=== PATIENT | female | born 1955 | race Asian ===

== ENCOUNTER 2019-07-06 09:35 | Outpatient (CLI) | payer OTHER, SELFPAY ==
[2019-07-06 10:15] LABS: Basophils Absolute Auto 0.1 K/mm3 (0.0-0.1); Basophils Percent Auto 0.8 % (0.2-1.2); Eosinophils Absolute Auto 0.9 K/mm3 (0-0.3); Eosinophils Percent Auto 10.2 % (0-4.4); Hematocrit 39.2 % (37.0-47.0); Hemoglobin 13.1 g/dL (12.0-15.0); Immature Granulocyte Absolute 0.02 K/mm3 (0.00-0.031); Immature Granulocyte Percent A 0.2 % (0-0.5); Lymphocytes Absolute Auto 2.23 K/mm3 (0.9-3.2); Lymphocytes Percent Auto 26.4 % (18.3-44.2); Mean Corpuscular HGB Conc 33.4 g/dl (32-36); Mean Corpuscular Hemoglobin 26.9 pg (26-34); Mean Corpuscular Volume 80.5 fl (80-100); Mean Platelet Volume 8.9 fl (7.4-10.4); Monocytes Absolute Auto 1.1 K/mm3 (0.1-0.6); Monocytes Percent Auto 12.9 % (2.6-8.5); Neutrophils Absolute Auto 4.2 K/mm3 (1.3-6.7); Neutrophils Percent Auto 49.5 % (45.5-73.1); Platelet Count Result 318 k/mm3 (150-375); Red Blood Count 4.87 M/mm3 (4.2-5.4); Red Cell Distribution Width 13.6 % (11.5-14.5); White Blood Count 8.4 K/mm3 (4.5-10.0)
[2019-07-06 10:31] LABS: Albumin Level 4.4 g/dL (3.5-5.1); Blood Urea Nitrogen 26 mg/dL (7-17); Calcium 8.7 mg/dL (8.4-10.2); Carbon Dioxide 28 mmol/L (22-30); Chloride 101 mmol/L (98-107); Estimated Glomerular Filt Rate 56; Glucose 111 mg/dL (65-105); Phosphorus 3.3 mg/dL (2.5-4.5); Potassium 3.6 mmol/L (3.4-5.0); Sodium 142 mmol/L (137-145); Uric Acid 4.3 mg/dL (2.5-7.5)
[2019-07-06 12:08] LABS: Creatinine Urine 58.9 mg/dL
[2019-07-06 12:09] LABS: MALB Creatinine Ratio 139.4 mg/g (0-30); Microalbumin Urine Random 82.1 mg/L (0-16.7)
== END 2019-07-06 09:36 | disposition home or self-care (01) ==
DX: I12.9 Hypertensive chronic kidney disease with stage 1 through stage 4 chronic kidney disease, or unspecified chronic kidney disease (principal); N18.3 Chronic kidney disease, stage 3 (moderate)
CPT/HCPCS: 36415; 80069; 82043; 84550; 85025

== ENCOUNTER 2019-10-05 06:34 | Outpatient (CLI) | payer OTHER, SELFPAY ==
--- NOTE | ~2019-10-05 | US_ITS ---
US right upper quadrant INDICATION: Chronic active hepatitis B PROCEDURE: Realtime right upper abdominal ultrasound. COMPARISON: Ultrasound dated 03/15/2019 FINDINGS: The pancreas is normal without focal mass or pancreatic ductal dilation. Liver echotexture is normal without focal mass or intrahepatic biliary dilatation. There is normal directional flow i n the portal vein. The gallbladder is normal without stones, gallbladder wall thickening or pericholecystic fluid. Comm on bile duct measures 3 mm. No sonographic Marquez's sign. IMPRESSION: 1: Normal limited abdominal ultrasound. Reviewed, dictated and finalized at location A.
[2019-10-05 07:23] LABS: Hematocrit 40.3 % (37.0-47.0); Hemoglobin 13.3 g/dL (12.0-15.0); Mean Corpuscular Hemoglobin 27.1 pg (26-34); Mean Corpuscular Volume 82.2 fl (80-100); Mean Platelet Volume 9.2 fl (7.4-10.4); Platelet Count Result 315 k/mm3 (150-375); Red Cell Distribution Width 13.8 % (11.5-14.5); White Blood Count 9.7 K/mm3 (4.5-10.0)
[2019-10-05 07:41] LABS: Alanine Aminotransferase 29 U/L (4-35); Albumin Level 4.3 g/dL (3.5-5.1); Alkaline Phosphatase 80 U/L (38-126); Aspartate Amino Transferase 52 U/L (14-36); Bilirubin,Total 0.8 mg/dL (0.2-1.3); Blood Urea Nitrogen 21 mg/dL (7-17); Calcium 8.6 mg/dL (8.4-10.2); Carbon Dioxide 31 mmol/L (22-30); Chloride 104 mmol/L (98-107); Estimated Glomerular Filt Rate 50; Glucose 106 mg/dL (65-105); Potassium 3.5 mmol/L (3.4-5.0); Sodium 139 mmol/L (137-145)
== END 2019-10-05 06:35 | disposition home or self-care (01) ==
DX: B18.1 Chronic viral hepatitis B without delta-agent (principal)
CPT/HCPCS: 36415; 76705; 80053; 85027

== ENCOUNTER 2019-11-15 07:37 | Outpatient (CLI) | payer OTHER, SELFPAY ==
--- NOTE | ~2019-11-15 | MM_ITS ---
EXAMINATION: MM screening declan BI w andrés HISTORY: Screening mammogram TECHNIQUE: Craniocaudal and mediolateral oblique 3-D tomosynthesis images were obtained and synthetic 2-D images were generated. CAD analysis was submitted and interpreted. COMPARISON: No prior mammogram is available for comparison at this institution. BREAST PARENCHYMAL COMPOSITION: There are scattered areas of fibroglandular density. FINDINGS: There is no evidence of suspicious mass, calcification, or architectural distortion to sugg est malignancy in either breast. IMPRESSION: 1. No mammographic evidence of malignancy. 2. Recommend routine screening mammography in one year. BI-RADS Category 1: Negative Reviewed, dictated and finalized at location A.
== END 2019-11-15 07:38 | disposition home or self-care (01) ==
DX: Z12.31 Encounter for screening mammogram for malignant neoplasm of breast (principal)
CPT/HCPCS: 77063; 77067

== ENCOUNTER 2019-12-07 06:37 | Outpatient (CLI) | payer OTHER, SELFPAY ==
[2019-12-07 11:13] LABS: Hepatitis B Surface Antigen Positive (Negative)
[2019-12-10 05:00] LABS: Hepatitis Be Antibody Reactive; Hepatitis Be Antigen Nonreactive
== END 2019-12-07 06:38 | disposition home or self-care (01) ==
PROVIDERS: Visit Provider Internal Medicine Gastroenterology
DX: B19.10 Unspecified viral hepatitis B without hepatic coma (principal)
CPT/HCPCS: 36415; 86707; 87340; 87350; 87517

== ENCOUNTER 2020-03-06 06:43 | Outpatient (CLI) | payer OTHER, SELFPAY ==
[2020-03-06 07:40] LABS: Basophils Absolute Auto 0.1 K/mm3 (0.0-0.1); Basophils Percent Auto 0.7 % (0.2-1.2); Eosinophils Absolute Auto 1.3 K/mm3 (0-0.3); Eosinophils Percent Auto 13.7 % (0-4.4); Hematocrit 39.5 % (37.0-47.0); Hemoglobin 13.1 g/dL (12.0-15.0); Immature Granulocyte Absolute 0.02 K/mm3 (0.00-0.031); Immature Granulocyte Percent A 0.2 % (0-0.5); Lymphocytes Percent Auto 29.1 % (18.3-44.2); Mean Corpuscular HGB Conc 33.2 g/dl (32-36); Mean Corpuscular Hemoglobin 27.2 pg (26-34); Mean Platelet Volume 8.9 fl (7.4-10.4); Monocytes Absolute Auto 1.2 K/mm3 (0.1-0.6); Monocytes Percent Auto 12.1 % (2.6-8.5); Neutrophils Absolute Auto 4.3 K/mm3 (1.3-6.7); Neutrophils Percent Auto 44.2 % (45.5-73.1); Platelet Count Result 317 k/mm3 (150-375); Red Blood Count 4.82 M/mm3 (4.2-5.4); White Blood Count 9.6 K/mm3 (4.5-10.0)
[2020-03-06 07:53] LABS: Alanine Aminotransferase 32 U/L (4-35); Albumin Level 4.3 g/dL (3.5-5.1); Alkaline Phosphatase 77 U/L (38-126); Anion Gap 5 mmol/L (8-16); Aspartate Amino Transferase 59 U/L (14-36); Bilirubin,Total 0.7 mg/dL (0.2-1.3); Blood Urea Nitrogen 26 mg/dL (7-17); Calcium 8.5 mg/dL (8.4-10.2); Carbon Dioxide 33 mmol/L (22-30); Chloride 103 mmol/L (98-107); Cholesterol 184 mg/dL (0-200); Estimated Glomerular Filt Rate 50; Glucose 101 mg/dL (65-105); HDL Direct 37 mg/dL; Potassium 3.4 mmol/L (3.4-5.0); Sodium 141 mmol/L (137-145); Triglycerides 189 mg/dL (<150); Uric Acid 3.7 mg/dL (2.5-7.5)
[2020-03-06 07:54] LABS: Hemoglobin A1C 5.3 % (<5.7)
[2020-03-06 08:03] LABS: LDL Cholesterol Direct 109 mg/dL
[2020-03-06 08:11] LABS: Add Urine Microscopic? YES; Appearance Urine Cloudy (Clear); Bacteria Urine Trace /hpf; Bilirubin Urine Negative (Negative); Blood Urine Negative (Negative); Color Urine Yellow (Yellow); Glucose Urine UA Negative (Negative); Ketones Urine Negative (Negative); Leukocyte Esterase Ur Trace LEU/UL (Negative); Mucus Urine Rare /lpf; Nitrate Urine Negative (Negative); Protein Urine 1+ mg/dL (Negative); RBC Urine 0-2 /hpf (0-2); Specific Grav Ur 1.013 (1.001-1.035); Squamous Epithelial Cell Urine Rare /hpf (Few); Urobilinogen Urine Negative mg/dL (<2.0); WBC Urine 0-3 /hpf
[2020-03-06 08:17] LABS: Creatinine Urine 47.2 mg/dL; Total Protein Urine Random 47 mg/dL
[2020-03-06 08:22] LABS: MALB Creatinine Ratio 130.9 mg/g (0-30); Microalbumin Urine Random 61.8 mg/L (0-16.7)
[2020-03-11 20:23] LABS: Hepatitis B DNA PCR <1.00 Log IU/mL; Hepatitis B DNA PCR <10 IU/mL
== END 2020-03-06 06:44 | disposition home or self-care (01) ==
PROVIDERS: Referring Provider Internal Medicine Gastroenterology; Visit Provider Internal Medicine
DX: B19.10 Unspecified viral hepatitis B without hepatic coma (principal); I12.9 Hypertensive chronic kidney disease with stage 1 through stage 4 chronic kidney disease, or unspecified chronic kidney disease; N18.30 Chronic kidney disease, stage 3 unspecified
CPT/HCPCS: 36415; 80053; 80061; 81001; 82043; 82248; 82570; 83036; 84100; 84156; 84443; 84550; 85025; 87517

== ENCOUNTER 2020-05-22 06:39 | Outpatient (CLI) | payer OTHER, SELFPAY ==
[2020-05-22 07:51] LABS: Add Urine Microscopic? YES; Appearance Urine Clear (Clear); Bilirubin Urine Negative (Negative); Blood Urine Negative (Negative); Color Urine Straw (Yellow); Glucose Urine UA 1+ mg/dL (Negative); Ketones Urine Negative (Negative); Leukocyte Esterase Ur Negative LEU/UL (NEGATIVE); Mucus Urine Few /lpf; Nitrate Urine Negative (Negative); Protein Urine 2+ mg/dL (Negative); RBC Urine 0-2 /hpf (0-2); Specific Grav Ur 1.014 (1.001-1.035); Squamous Epithelial Cell Urine Occasional /hpf (Few); Urobilinogen Urine Negative mg/dL (<2.0); WBC Urine 0-3 /hpf (0-3)
[2020-05-22 07:53] LABS: Creatinine Urine 69.4 mg/dL; Total Protein Urine Random 65 mg/dL; Ur Ttl Prot Creatinine Ratio 0.94 mg/mg (0-0.20)
[2020-05-22 07:56] LABS: Rheumatoid Factor < 8.6 IU/ML (<12)
[2020-05-22 09:52] LABS: Alanine Aminotransferase 30 U/L (4-35); Albumin Level 4.3 g/dL (3.5-5.1); Alkaline Phosphatase 86 U/L (38-126); Anion Gap 6 mmol/L (8-16); Aspartate Amino Transferase 55 U/L (14-36); Bilirubin,Total 0.5 mg/dL (0.2-1.3); Blood Urea Nitrogen 23 mg/dL (7-17); Calcium 8.6 mg/dL (8.4-10.2); Carbon Dioxide 30 mmol/L (22-30); Chloride 106 mmol/L (98-107); Estimated Glomerular Filt Rate 45; Glucose 106 mg/dL (65-105); Potassium 3.5 mmol/L (3.4-5.0); Sodium 142 mmol/L (137-145); Uric Acid 4.2 mg/dL (2.5-7.5)
[2020-05-22 10:22] LABS: Hepatitis B Core IgM Result Negative (Negative)
[2020-05-22 10:34] LABS: Hepatitis B Surface Anti Res Negative
[2020-05-22 10:35] LABS: Hepatitis B Surface Antigen Positive (Negative)
== END 2020-05-22 06:40 | disposition home or self-care (01) ==
PROVIDERS: Visit Provider Internal Medicine Nephrology
DX: I12.9 Hypertensive chronic kidney disease with stage 1 through stage 4 chronic kidney disease, or unspecified chronic kidney disease (principal); N18.30 Chronic kidney disease, stage 3 unspecified
CPT/HCPCS: 36415; 80053; 81001; 82570; 84100; 84156; 84550; 86430; 86705; 86706; 87340

== ENCOUNTER 2020-08-07 06:39 | Outpatient (CLI) | payer OTHER, SELFPAY ==
[2020-08-07 07:54] LABS: Alanine Aminotransferase 33 U/L (4-35); Albumin Level 4.2 g/dL (3.5-5.1); Alkaline Phosphatase 60 U/L (38-126); Aspartate Amino Transferase 62 U/L (14-36); Bilirubin,Total 0.5 mg/dL (0.2-1.3)
[2020-08-07 08:52] LABS: Hepatitis B Surface Antigen Positive (Negative)
[2020-08-10 20:04] LABS: Hepatitis Be Antigen Nonreactive
[2020-08-11 10:48] LABS: Hepatitis B DNA PCR <1.00 Log IU/mL; Hepatitis B DNA PCR <10 IU/mL
[2020-08-12 18:53] LABS: Alpha Fetoprotein Tumor Marker 4.2 ng/mL (<6.1)
== END 2020-08-07 06:40 | disposition home or self-care (01) ==
PROVIDERS: Visit Provider Internal Medicine Gastroenterology
DX: B19.10 Unspecified viral hepatitis B without hepatic coma (principal)
CPT/HCPCS: 36415; 80076; 82105; 87340; 87350; 87517

== ENCOUNTER 2020-10-03 06:34 | Outpatient (CLI) | payer OTHER, SELFPAY ==
[2020-10-03 07:31] LABS: Basophils Percent Auto 0.2 % (0.2-1.2); Eosinophils Absolute Auto 0.9 K/mm3 (0-0.3); Hematocrit 36.9 % (37.0-47.0); Immature Granulocyte Absolute 0.02 K/mm3 (0.00-0.031); Immature Granulocyte Percent A 0.2 % (0-0.5); Lymphocytes Absolute Auto 2.49 K/mm3 (0.9-3.2); Lymphocytes Percent Auto 29.1 % (18.3-44.2); Mean Corpuscular HGB Conc 32.5 g/dl (32-36); Mean Corpuscular Hemoglobin 26.3 pg (26-34); Mean Corpuscular Volume 80.7 fl (80-100); Mean Platelet Volume 8.6 fl (7.4-10.4); Monocytes Absolute Auto 0.9 K/mm3 (0.1-0.6); Monocytes Percent Auto 10.4 % (2.6-8.5); Neutrophils Absolute Auto 4.2 K/mm3 (1.3-6.7); Neutrophils Percent Auto 49.1 % (45.5-73.1); Platelet Count Result 367 k/mm3 (150-375); Red Blood Count 4.57 M/mm3 (4.2-5.4); Red Cell Distribution Width 13.9 % (11.5-14.5); White Blood Count 8.6 K/mm3 (4.5-10.0)
[2020-10-03 07:36] LABS: Add Urine Microscopic? YES; Appearance Urine Clear (Clear); Bilirubin Urine Negative (Negative); Blood Urine Negative (Negative); Color Urine Yellow (Yellow); Glucose Urine UA Negative (Negative); Ketones Urine Negative (Negative); Leukocyte Esterase Ur 1+ LEU/UL (Negative); Mucus Urine Rare /lpf; Nitrate Urine Negative (Negative); Protein Urine 1+ mg/dL (Negative); RBC Urine 0-2 /hpf (0-2); Specific Grav Ur 1.011 (1.001-1.035); Squamous Epithelial Cell Urine Rare /hpf (Few); Urobilinogen Urine Negative mg/dL (<2.0)
[2020-10-03 07:39] LABS: Hemoglobin A1C 5.8 % (<5.7)
[2020-10-03 07:41] LABS: Alanine Aminotransferase 31 U/L (4-35); Albumin Level 4.1 g/dL (3.5-5.1); Alkaline Phosphatase 72 U/L (38-126); Anion Gap 8 mmol/L (8-16); Aspartate Amino Transferase 78 U/L (14-36); Bilirubin,Total 0.5 mg/dL (0.2-1.3); Blood Urea Nitrogen 19 mg/dL (7-17); Calcium 8.6 mg/dL (8.4-10.2); Carbon Dioxide 30 mmol/L (22-30); Chloride 105 mmol/L (98-107); Cholesterol 182 mg/dL (0-200); Estimated Glomerular Filt Rate 45; Glucose 104 mg/dL (65-105); HDL Direct 35 mg/dL; Phosphorus 2.7 mg/dL (2.5-4.5); Potassium 3.4 mmol/L (3.4-5.0); Sodium 143 mmol/L (137-145); Triglycerides 133 mg/dL (<150); Uric Acid 3.3 mg/dL (2.5-7.5)
[2020-10-03 07:52] LABS: LDL Cholesterol Direct 90 mg/dL
[2020-10-03 07:59] LABS: Erythrocyte Sedimentation Rate 40 mm/hr (0-20)
[2020-10-03 08:03] LABS: Creatinine Urine 62.2 mg/dL; Total Protein Urine Random 82 mg/dL; Ur Ttl Prot Creatinine Ratio 1.32 mg/mg (0-0.20)
[2020-10-03 08:08] LABS: MALB Creatinine Ratio 165.3 mg/g (0-30); Microalbumin Urine Random 102.8 mg/L (0-16.7)
[2020-10-03 08:33] LABS: Iron 90 ug/dL (37-170)
[2020-10-03 08:44] LABS: Percent Iron Saturation 23 % (20-50)
[2020-10-03 08:48] LABS: Folic Acid > 20.0 ng/mL (2.76->20); Vitamin B12 > 1000.0 pg/mL (239-931)
[2020-10-05 11:51] LABS: Hepatitis B DNA PCR <1.00 Log IU/mL; Hepatitis B DNA PCR <10 IU/mL
== END 2020-10-03 06:35 | disposition home or self-care (01) ==
PROVIDERS: Referring Provider Internal Medicine Nephrology; Visit Provider Internal Medicine
DX: I12.9 Hypertensive chronic kidney disease with stage 1 through stage 4 chronic kidney disease, or unspecified chronic kidney disease (principal); N18.30 Chronic kidney disease, stage 3 unspecified; B19.10 Unspecified viral hepatitis B without hepatic coma; E03.9 Hypothyroidism, unspecified; J45.902 Unspecified asthma with status asthmaticus; J44.9 Chronic obstructive pulmonary disease, unspecified; G47.00 Insomnia, unspecified; Z13.9 Encounter for screening, unspecified
CPT/HCPCS: 36415; 80053; 80061; 80069; 81001; 82043; 82306; 82570; 82607; 82728; 82746; 83036; 83540; 83550; 84156; 84436; 84443; 84550; 85025; 85652; 87086; 87088; 87517

== ENCOUNTER 2020-10-04 09:00 | Emergency (ER) | payer OTHER, SELFPAY ==
--- NOTE | ~2020-10-04 | XR_ITS ---
EXAMINATION: XR chest 2V EXAM DATE: 10/04/2020 10:37 INDICATION: cough and congestion for 3 weeks. TECHNIQUE: Frontal and lateral projections of the chest obtained and reviewed. There is no prior jitendra dy for comparison. FINDINGS: The lungs are clear. There are no pleural effusions. The cardiomediastinal silhouette is within normal limits. There is no pneumothorax suspected. The bones and soft tissues are unremarkab le. IMPRESSION: No acute cardiopulmonary findings. Reviewed, dictated and finalized at location B.
[2020-10-04 09:05] VITALS: BP 130/84; PULSE 104; RESP 20; TEMP 36.2; O2SAT 99
--- NOTE | 2020-10-04 09:28 | PC.NURSE ---
Arrives ambulatory steady gait, c/o x3 weeks congested cough and sore throat, denies CP/SOB, 100% RA sats. States she received full covid vaccine
[2020-10-04] MEDS: IPRATROPIUM BR 0.02% INH SOLN 0.5 MG/2.5 ML VIAL 1 MG INHALATION (09:43)
[2020-10-04] MEDS: ALBUTEROL SULFATE NEB 2.5 MG/0.5 ML INH 20 MG INHALATION (09:44)
--- NOTE | 2020-10-04 09:48 | PC.NURSE ---
Respiratory at bedside to administer hour long neb, 100% sats, pt awake sitting up on cart HOB elevated
[2020-10-04 09:50] VITALS: PULSE 82; RESP 30
[2020-10-04] MEDS: methylPREDNISolone SOD SUCC 125 MG VIAL 80 MG IV PUSH (10:08)
[2020-10-04] MEDS: SODIUM CHLORIDE 0.9% IV 500 ML 999 ML IV CONT (10:08)
[2020-10-04 10:25] LABS: Basophils Percent Auto 0.3 % (0.2-1.2); Hematocrit 34.5 % (37.0-47.0); Hemoglobin 11.4 g/dL (12.0-15.0); Immature Granulocyte Absolute 0.05 K/mm3 (0.00-0.031); Immature Granulocyte Percent A 0.4 % (0-0.5); Lymphocytes Absolute Auto 2.88 K/mm3 (0.9-3.2); Lymphocytes Percent Auto 24.1 % (18.3-44.2); Mean Corpuscular Hemoglobin 26.1 pg (26-34); Mean Corpuscular Volume 78.9 fl (80-100); Mean Platelet Volume 8.8 fl (7.4-10.4); Monocytes Percent Auto 8.4 % (2.6-8.5); Neutrophils Percent Auto 58.8 % (45.5-73.1); Platelet Count Result 378 k/mm3 (150-375); Red Blood Count 4.37 M/mm3 (4.2-5.4); Red Cell Distribution Width 13.6 % (11.5-14.5); White Blood Count 11.9 K/mm3 (4.5-10.0)
[2020-10-04 10:34] LABS: Lactic Acid Reflex 1.3 mmol/L (0.7-2.1)
[2020-10-04 10:37] LABS: INR 0.9; Prothrombin Time 12.4 Seconds (11.1-14.7)
[2020-10-04 10:38] LABS: Partial Thromboplastin Time 27.5 SECONDS (22.3-36.8)
[2020-10-04 10:45] VITALS: BP 113/59; PULSE 103; RESP 19; O2SAT 100
[2020-10-04 10:53] VITALS: PULSE 104; RESP 21
--- NOTE | 2020-10-04 11:31 | ED.GENADULT ---
HPI - General Adult General Chief complaint: Upper Respiratory Infection Stated complaint: cough, sob, asthma Time Seen by Provider: 10/04/20 09:17 Source: patient, family and RN notes reviewed Mode of arrival: ambulatory Limitations: no limitations History of Present Illness HPI narrative: Patient is 64-year-old female who presents with a wheezing upper respiratory symptoms with history of asthma has been having bronchitis-like symptoms for the last week or more patient is scheduled to see primary care has been using her inhalers with some improvement nose congestion denies any fever vomiting diarrhea or chest pain Related Data Home Medications Medication Instructions Recorded Confirmed albuterol sulfate INHALATION 10/04/20 amlodipine 10/04/20 beclomethasone dipropionate [Qvar INHALATION 10/04/20 RediHaler] levothyroxine 10/04/20 loratadine mg 10/04/20 losartan 10/04/20 montelukast mg 10/04/20 tenofovir disoproxil fumarate 10/04/20 zolpidem 10/04/20 Allergies Allergy/AdvReac Type Severity Reaction Status Date / Time No Known Allergies Allergy Verified 10/04/20 09:20 Review of Systems Review of Systems: All systems reviewed & are unremarkable except as noted in HPI and below PMFSH Past Medical History Medical History (Updated 10/04/20 @ 11:39 by Brayan Méndez PA-C) Asthma Social History Social History (Updated 10/04/20 @ 11:36 by Brayan Méndez PA-C) Smoking status: Never smoker Exam Narrative: Exam Narrative: GENERAL: Well-appearing, well-nourished, and in no acute distress. HEAD: Normocephalic, atraumatic. EYES: PERRLA and EOMI. ENT: Nares clear, no rhinorrhea or epistaxis. Mucous membranes moist. CHEST: Clear to auscultation. No respiratory distress. Slight wheezes in the lung garcia HEART: Regular rate and rhythm. No murmur heard. EXTREMITIES: Normal range of motion. No edema. SKIN: Warm, dry, no rash. NEURO: No focal deficits. Alert and oriented x3. Cranial nerves II through XII grossly intact PSYCH: Normal mood and affect. Course Course Emergency Course: Patient in the room at this time in no distress had improvement with breathing treatment no pneumonia seen on exam will be discharged home with outpatient follow-up with primary care provided with reasons to return was able to ambulate without becoming hypoxic Vital Signs Vital signs: Vital Signs Temperature 97.2 F L 10/04/20 09:05 Pulse Rate 104 H 10/04/20 09:05 Respiratory Rate 20 10/04/20 09:05 Blood Pressure 130/84 10/04/20 09:05 Pulse Oximetry 99 10/04/20 09:05 Temperature 97.2 F L 10/04/20 09:05 Pulse Rate 104 H 10/04/20 10:53 Respiratory Rate 21 H 10/04/20 10:53 Blood Pressure 113/59 L 10/04/20 10:45 Pulse Oximetry 100 10/04/20 10:45 Medical Decision Making MDM Narrative Medical decision making narrative: Patient presented with bronchitis-like symptoms will be managed accordingly felt appropriate for outpatient reevaluation agreeing to follow with her primary care doctor as scheduled will be given a pulmonology consult and reasons to return felt appropriate for outpatient reevaluation Vital Signs Vital Signs: Vital Signs Temperature 97.2 F L 10/04/20 09:05 Pulse Rate 104 H 10/04/20 09:05 Respiratory Rate 20 10/04/20 09:05 Blood Pressure 130/84 10/04/20 09:05 Pulse Oximetry 99 10/04/20 09:05 Temperature 97.2 F L 10/04/20 09:05 Pulse Rate 104 H 10/04/20 10:53 Respiratory Rate 21 H 10/04/20 10:53 Blood Pressure 113/59 L 10/04/20 10:45 Pulse Oximetry 100 10/04/20 10:45 Lab Data Result diagrams: 10/04/20 10:08 10/04/20 10:08 Labs: Lab Results 10/04/20 10/04/20 10/04/20 Range/Units 10:08 10:08 10:08 WBC 11.9 H (4.5-10.0) K/mm3 RBC 4.37 (4.2-5.4) M/mm3 Hgb 11.4 L (12.0-15.0) g/dL Hct 34.5 L (37.0-47.0) % MCV 78.9 L (80-100) fl MCH 26.1 (26-34) pg MCHC 33.0 (3
[2020-10-04 11:36] LABS: Alanine Aminotransferase 32 U/L (4-35); Albumin Level 4.2 g/dL (3.5-5.1); Alkaline Phosphatase 63 U/L (38-126); Anion Gap 8 mmol/L (8-16); Aspartate Amino Transferase 88 U/L (14-36); Bilirubin,Total 0.6 mg/dL (0.2-1.3); Blood Urea Nitrogen 23 mg/dL (7-17); CRP < 0.5 mg/dL (<1.0); Calcium 8.8 mg/dL (8.4-10.2); Carbon Dioxide 26 mmol/L (22-30); Chloride 106 mmol/L (98-107); Estimated Glomerular Filt Rate 50; Glucose 113 mg/dL (65-105); Potassium 3.9 mmol/L (3.4-5.0); Sodium 140 mmol/L (137-145)
[2020-10-04 12:08] VITALS: BP 107/78; PULSE 78; RESP 20; O2SAT 99
== END 2020-10-04 12:09 | disposition home or self-care (01) ==
PROVIDERS: Emergency Medicine Emergency Medical Services; Emergency Provider Emergency Medicine; PCP Internal Medicine
DX: J45.909 Unspecified asthma, uncomplicated (principal)
CPT/HCPCS: 36415; 71046; 80053; 83605; 85025; 85610; 85730; 86140; 87040; 94640; 96361; 96374; 99284; J2930; J7040

== ENCOUNTER 2020-11-01 07:35 | Outpatient (CLI) | payer OTHER, SELFPAY ==
--- NOTE | ~2020-11-01 | US_ITS ---
EXAMINATION: US right upper quadrant DATE: 11/01/2020 08:19 INDICATION: Right upper quadrant pain TECHNIQUE: Multiple grayscale and Doppler ultrasound images of the abdomen were obtained. COMPARISON: 10/05/2019 FINDINGS: The head, body, and tail of the pancreas are normal. The liver is normal with normal echoge nicity and echotexture. No surface nodularity. Normal hepatopetal flow in the main portal vein. The g allbladder is normal with no abnormal wall thickening, pericholecystic fluid or stones. The normal co mmon bile duct measures 3 mm. There was no sonographic Marquez sign. IMPRESSION: 1. Normal sonographic study of the gallbladder. Reviewed, dictated and finalized at location B.
== END 2020-11-01 07:36 | disposition home or self-care (01) ==
LOC: ANHIMG 07:39
PROVIDERS: PCP Internal Medicine; Visit Provider Internal Medicine Gastroenterology
DX: B19.10 Unspecified viral hepatitis B without hepatic coma (principal)
CPT/HCPCS: 76705

== ENCOUNTER 2020-11-16 07:21 | Outpatient (CLI) | payer OTHER, SELFPAY ==
--- NOTE | ~2020-11-16 | MM_ITS ---
EXAMINATION: MM screening declan BI w andrés HISTORY: Screening mammogram TECHNIQUE: Craniocaudal and mediolateral oblique 3-D tomosynthesis images were obtained and synthetic 2-D images were generated. CAD analysis was submitted and interpreted. COMPARISON: 11/15/2019 BREAST PARENCHYMAL COMPOSITION: There are scattered areas of fibroglandular density. FINDINGS: There is no evidence of suspicious mass, calcification, or architectural distortion to sugg est malignancy in either breast. There has been no suspicious interval change. IMPRESSION: 1. No mammographic evidence of malignancy. 2. Recommend routine screening mammography in one year. BI-RADS Category 1: Negative Reviewed, dictated and finalized at location A.
== END 2020-11-16 07:22 | disposition home or self-care (01) ==
LOC: ANHIMG 07:22
PROVIDERS: PCP Internal Medicine
DX: Z12.31 Encounter for screening mammogram for malignant neoplasm of breast (principal)
CPT/HCPCS: 77063; 77067

== ENCOUNTER 2021-03-05 07:02 | Outpatient (CLI) | payer OTHER, SELFPAY ==
[2021-03-05 08:01] LABS: Basophils Absolute Auto 0.1 K/mm3 (0.0-0.1); Eosinophils Absolute Auto 0.9 K/mm3 (0-0.3); Eosinophils Percent Auto 10.9 % (0-4.4); Hematocrit 34.7 % (37.0-47.0); Hemoglobin 11.5 g/dL (12.0-15.0); Immature Granulocyte Absolute 0.02 K/mm3 (0.00-0.031); Immature Granulocyte Percent A 0.2 % (0-0.5); Lymphocytes Absolute Auto 2.91 K/mm3 (0.9-3.2); Lymphocytes Percent Auto 33.6 % (18.3-44.2); Mean Corpuscular HGB Conc 33.1 g/dl (32-36); Mean Corpuscular Hemoglobin 25.4 pg (26-34); Mean Corpuscular Volume 76.8 fl (80-100); Mean Platelet Volume 8.5 fl (7.4-10.4); Monocytes Absolute Auto 1.2 K/mm3 (0.1-0.6); Monocytes Percent Auto 13.5 % (2.6-8.5); Neutrophils Absolute Auto 3.5 K/mm3 (1.3-6.7); Neutrophils Percent Auto 40.8 % (45.5-73.1); Platelet Count Result 345 k/mm3 (150-375); Red Blood Count 4.52 M/mm3 (4.2-5.4); Red Cell Distribution Width 14.5 % (11.5-14.5); White Blood Count 8.7 K/mm3 (4.5-10.0)
[2021-03-05 08:06] LABS: Add Urine Microscopic? YES; Appearance Urine Cloudy (Clear); Bilirubin Urine Negative (Negative); Blood Urine Negative (Negative); Color Urine Yellow (Yellow); Glucose Urine UA 1+ mg/dL (Negative); Ketones Urine Negative (Negative); Leukocyte Esterase Ur Negative LEU/UL (NEGATIVE); Mucus Urine Rare /lpf; Nitrate Urine Negative (Negative); Protein Urine 2+ mg/dL (Negative); RBC Urine 0-2 /hpf (0-2); Specific Grav Ur 1.016 (1.001-1.035); Squamous Epithelial Cell Urine Rare /hpf (Few); Urobilinogen Urine Negative mg/dL (<2.0); WBC Urine 0-3 /hpf (0-3)
[2021-03-05 08:20] LABS: Alanine Aminotransferase 29 U/L (4-35); Albumin Level 4.2 g/dL (3.5-5.1); Alkaline Phosphatase 68 U/L (38-126); Anion Gap 8 mmol/L (8-16); Aspartate Amino Transferase 61 U/L (14-36); Bilirubin,Total 0.5 mg/dL (0.2-1.3); Blood Urea Nitrogen 26 mg/dL (7-17); Calcium 8.2 mg/dL (8.4-10.2); Carbon Dioxide 28 mmol/L (22-30); Chloride 105 mmol/L (98-107); Estimated Glomerular Filt Rate 50; Glucose 105 mg/dL (65-110); Phosphorus 2.9 mg/dL (2.5-4.5); Potassium 3.7 mmol/L (3.4-5.0); Sodium 141 mmol/L (137-145); Uric Acid 3.9 mg/dL (2.5-7.5)
[2021-03-05 08:55] LABS: Creatinine Urine 91.1 mg/dL; Total Protein Urine Random 82 mg/dL
[2021-03-08 14:12] LABS: Hepatitis B DNA PCR <1.00 Log IU/mL; Hepatitis B DNA PCR <10 IU/mL
[2021-03-08 17:53] LABS: Hepatitis Be Antibody Reactive; Hepatitis Be Antigen Nonreactive
== END 2021-03-05 07:03 | disposition home or self-care (01) ==
PROVIDERS: PCP Internal Medicine; Referring Provider Internal Medicine Gastroenterology; Visit Provider Internal Medicine Nephrology
DX: I12.9 Hypertensive chronic kidney disease with stage 1 through stage 4 chronic kidney disease, or unspecified chronic kidney disease (principal); N18.30 Chronic kidney disease, stage 3 unspecified
CPT/HCPCS: 36415; 80053; 80069; 81001; 82570; 84156; 84550; 85025; 86707; 87350; 87517

== ENCOUNTER 2021-06-17 08:16 | Emergency (ER) | payer OTHER, SELFPAY ==
--- NOTE | ~2021-06-17 | CT_ITS ---
EXAMINATION: CT cervical spine wo con DATE: 06/17/2021 09:11 INDICATION: Neck injury. TECHNIQUE: Computed tomography (CT) of the cervical spine was performed without intravenous contrast. Automated exposure control and iterative reconstruction technique were employed. The dose-length pro duct was 203.51 mGy-cm. COMPARISON: None FINDINGS: There is kyphosis of cervical spine. Vertebral body heights are normal. There is moderately decreased disc height at C6-C7 with endplate remodeling. The following disc levels are specifically discussed: C2-C3: There is no uncovertebral joint osteoarthritis. There is no facet joint osteoarthritis. There is no neural foraminal stenosis. There is no central canal stenosis. C3-C4: There is no uncovertebral joint osteoarthritis. There is severe right and mild left facet join t osteoarthritis. There is no neural foraminal stenosis. There is no central canal stenosis. C4-C5: There is no uncovertebral joint osteoarthritis. There is severe right and moderate left facet joint osteoarthritis. There is moderate right neural foraminal stenosis. There is no central canal st enosis. C5-C6: There is no uncovertebral joint osteoarthritis. There is moderate right and severe left facet joint osteoarthritis. There is no neural foraminal stenosis. There is no central canal stenosis. C6-C7: There is severe bilateral uncovertebral joint osteoarthritis. There is severe right and modera te left facet joint osteoarthritis. There is mild bilateral neural foraminal stenosis. There is mild central canal stenosis. C7-T1: There is no uncovertebral joint osteoarthritis. There is mild bilateral facet joint osteoarthr itis. There is no neural foraminal stenosis. There is no central canal stenosis. IMPRESSION: 1. No fracture. 2. Moderate cervical spondylosis. Reviewed, dictated and finalized at location A. EY TECHNICIAN
--- NOTE | ~2021-06-17 | XR_ITS ---
EXAMINATION: XR shoulder LT min 2V DATE: 06/17/2021 09:16 INDICATION: Left shoulder pain. Fall. TECHNIQUE: 4 views of left shoulder were obtained. COMPARISON: None. FINDINGS: Bone alignment is normal. No fracture. There is mild osteoarthritis of glenohumeral joint a nd acromioclavicular joint. IMPRESSION: 1. Mild polyarticular osteoarthritis. Reviewed, dictated and finalized at location A. LER PLATER
[2021-06-17 08:22] VITALS: BP 128/82; PULSE 92; RESP 20; TEMP 36.8; O2SAT 99
--- NOTE | 2021-06-17 08:55 | ED.UPPEXIN ---
HPI - Extremity Injury (Upper) General Chief Complaint: Extremity Injury, Upper Stated Complaint: fall Time Seen by Provider: 06/17/21 08:55 Source: patient Mode of arrival: ambulatory History of Present Illness HPI narrative: Patient complaining of left-sided neck and left shoulder pain after falling 1 week ago. Patient slipped possibly on ice 1 week ago. No loss of consciousness, no headache, no back pain or chest pain. Related Data Home Medications Medication Instructions Recorded Confirmed albuterol sulfate INHALATION 10/04/20 amlodipine 10/04/20 beclomethasone dipropionate [Qvar INHALATION 10/04/20 RediHaler] levothyroxine 10/04/20 loratadine mg 10/04/20 losartan 10/04/20 montelukast mg 10/04/20 tenofovir disoproxil fumarate 10/04/20 zolpidem 10/04/20 Allergies Allergy/AdvReac Type Severity Reaction Status Date / Time No Known Allergies Allergy Verified 10/04/20 09:20 Review of Systems Review of Systems: CONSTITUTIONAL: Denies fever, chills, or sweats. EYES: Denies visual changes, redness, or discharge. ENT: Denies rhinorrhea, congestion, sore throat, or otalgia. CARDIOVASCULAR: Denies chest pain, palpitations, or edema. RESPIRATORY: Denies cough or dyspnea. GASTROINTESTINAL: Denies abdominal pain, nausea, vomiting, or diarrhea. GENITOURINARY: Denies dysuria or hematuria. SKIN: Denies rash or itching. MUSCULOSKELETAL: Denies back pain, joint pain, or myalgia. NEUROLOGIC: Denies headache, numbness, or weakness. PSYCHIATRIC: Denies anxiety or depression. [facility] Past Medical History Medical History Asthma Social History Social History Smoking status: Never smoker Exam Narrative: General appearance: Well-developed, well-nourished Skin: Normal color Head: Normocephalic, nontraumatic Eyes: Clear conjunctiva ENT: Oropharynx normal, ears normal, nose normal Neck: Slight tenderness left side of neck, no bruises, no swelling, no rash Chest and respiratory: Airway patent, no respiratory distress, no accessory muscle use Heart: Regular rate/rhythm Abdomen: Soft, nontender, no organomegaly, quiet bowel sounds Vascular: Normal peripheral pulses, normal capillary refill. 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 No fracture. 2. Moderate cervical spondylosis. Shoulder X-Ray 06/17/21 09:17 IMPRESSION: 1. Mild polyarticular osteoarthritis. Critical Care Time Critical Care Time Critical Care Time: No Discharge Plan Discharge Clinical Impression: Contusion of left shoulder Qualifiers: Encounter type: initial encounter Qualified Code(s): S40.012A - Contusion of left shoulder, initial encounter Patient Disposition: Home, Self-Care Condition: Stable Instructions: Antibiotic Form, Contusion in Adults (ED) Additional Instructions: Return if symptoms are worse
[2021-06-17 09:37] VITALS: BP 130/78; PULSE 82; RESP 18; O2SAT 100
== END 2021-06-17 09:39 | disposition home or self-care (01) ==
PROVIDERS: Emergency Provider Emergency Medicine; PCP Internal Medicine
DX: S40.012A Contusion of left shoulder, initial encounter (principal); J45.909 Unspecified asthma, uncomplicated; M47.812 Spondylosis without myelopathy or radiculopathy, cervical region; M19.012 Primary osteoarthritis, left shoulder; W00.0XXA Fall on same level due to ice and snow, initial encounter
CPT/HCPCS: 72125; 73030; 99284

== ENCOUNTER 2021-07-17 07:13 | Outpatient (CLI) | payer OTHER, SELFPAY ==
--- NOTE | ~2021-07-17 | US_ITS ---
EXAMINATION: US right upper quadrant DATE: 07/17/2021 08:20 INDICATION: Right upper quadrant abdominal pain. TECHNIQUE: Multiple grayscale and Doppler ultrasound images of the abdomen were obtained. COMPARISON: Ultrasound 11/01/2020 FINDINGS: The visualized portions of the head and body of the pancreas are normal. The liver is prashanth l without focal lesion. There is normal flow in main portal vein. The gallbladder is normal in size. No gallstones or gallbladder wall thickening. There was no sonographic Marquez sign. The common duct i s normal and measures 5 mm. IMPRESSION: 1. Normal right upper quadrant ultrasound. Reviewed, dictated and finalized at location A.
[2021-07-17 08:38] LABS: Basophils Absolute Auto 0.1 K/mm3 (0.0-0.1); Basophils Percent Auto 0.7 % (0.2-1.2); Eosinophils Absolute Auto 1.4 K/mm3 (0-0.3); Eosinophils Percent Auto 13.1 % (0-4.4); Hematocrit 31.3 % (37.0-47.0); Hemoglobin 9.7 g/dL (12.0-15.0); Immature Granulocyte Absolute 0.03 K/mm3 (0.00-0.031); Immature Granulocyte Percent A 0.3 % (0-0.5); Lymphocytes Absolute Auto 2.57 K/mm3 (0.9-3.2); Lymphocytes Percent Auto 24.1 % (18.3-44.2); Mean Corpuscular Hemoglobin 21.7 pg (26-34); Mean Corpuscular Volume 69.9 fl (80-100); Mean Platelet Volume 8.5 fl (7.4-10.4); Monocytes Absolute Auto 1.6 K/mm3 (0.1-0.6); Monocytes Percent Auto 14.6 % (2.6-8.5); Neutrophils Percent Auto 47.2 % (45.5-73.1); Platelet Count Result 425 k/mm3 (150-375); Red Blood Count 4.48 M/mm3 (4.2-5.4); Red Cell Distribution Width 17.1 % (11.5-14.5); White Blood Count 10.7 K/mm3 (4.5-10.0)
[2021-07-17 08:48] LABS: Total Protein Urine Random 146 mg/dL; Ur Ttl Prot Creatinine Ratio 1.32 mg/mg (0-0.20)
[2021-07-17 08:50] LABS: Alanine Aminotransferase 28 U/L (4-35); Albumin Level 4.2 g/dL (3.5-5.1); Alkaline Phosphatase 91 U/L (38-126); Anion Gap 3 mmol/L (8-16); Aspartate Amino Transferase 73 U/L (14-36); Bilirubin,Total 0.4 mg/dL (0.2-1.3); Blood Urea Nitrogen 19 mg/dL (7-17); CRP < 0.5 mg/dL (<1.0); Carbon Dioxide 29 mmol/L (22-30); Chloride 106 mmol/L (98-107); Estimated Glomerular Filt Rate 50; Glucose 99 mg/dL (65-110); Phosphorus 2.9 mg/dL (2.5-4.5); Potassium 3.7 mmol/L (3.4-5.0); Sodium 138 mmol/L (137-145)
[2021-07-20 04:08] LABS: Hepatitis Be Antibody Reactive; Hepatitis Be Antigen Nonreactive
[2021-07-20 17:57] LABS: Hepatitis B DNA PCR <1.00 Log IU/mL; Hepatitis B DNA PCR <10 IU/mL
== END 2021-07-17 07:14 | disposition home or self-care (01) ==
PROVIDERS: PCP Internal Medicine; Visit Provider Internal Medicine Gastroenterology
DX: B19.10 Unspecified viral hepatitis B without hepatic coma (principal); R10.11 Right upper quadrant pain
CPT/HCPCS: 36415; 76705; 80053; 80069; 82570; 84156; 85025; 86140; 86707; 87350; 87517

== ENCOUNTER 2021-11-20 06:36 | Outpatient (CLI) | payer OTHER, SELFPAY ==
[2021-11-20 07:10] LABS: Basophils Absolute Auto 0.1 K/mm3 (0.0-0.1); Basophils Percent Auto 0.8 % (0.2-1.2); Eosinophils Absolute Auto 0.9 K/mm3 (0-0.3); Eosinophils Percent Auto 10.3 % (0-4.4); Hematocrit 36.1 % (37.0-47.0); Hemoglobin 10.9 g/dL (12.0-15.0); Immature Granulocyte Absolute 0.03 K/mm3 (0.00-0.031); Immature Granulocyte Percent A 0.3 % (0-0.5); Lymphocytes Absolute Auto 2.36 K/mm3 (0.9-3.2); Lymphocytes Percent Auto 25.7 % (18.3-44.2); Mean Corpuscular HGB Conc 30.2 g/dl (32-36); Mean Corpuscular Hemoglobin 21.8 pg (26-34); Mean Corpuscular Volume 72.1 fl (80-100); Mean Platelet Volume 9.2 fl (7.4-10.4); Monocytes Absolute Auto 1.5 K/mm3 (0.1-0.6); Monocytes Percent Auto 15.9 % (2.6-8.5); Neutrophils Absolute Auto 4.3 K/mm3 (1.3-6.7); Platelet Count Result 337 k/mm3 (150-375); Red Blood Count 5.01 M/mm3 (4.2-5.4); Red Cell Distribution Width 20.4 % (11.5-14.5); White Blood Count 9.2 K/mm3 (4.5-10.0)
[2021-11-20 07:14] LABS: Creatinine Urine 54.8 mg/dL; Total Protein Urine Random 88 mg/dL; Ur Ttl Prot Creatinine Ratio 1.61 mg/mg (0-0.20)
[2021-11-20 07:23] LABS: Albumin Level 4.2 g/dL (3.5-5.1); Anion Gap 6 mmol/L (8-16); Blood Urea Nitrogen 27 mg/dL (7-17); Calcium 8.1 mg/dL (8.4-10.2); Carbon Dioxide 26 mmol/L (22-30); Chloride 107 mmol/L (98-107); Estimated Glomerular Filt Rate 41; Glucose 85 mg/dL (65-110); Phosphorus 2.8 mg/dL (2.5-4.5); Potassium 3.4 mmol/L (3.4-5.0); Sodium 139 mmol/L (137-145)
[2021-11-20 08:41] LABS: Anisocytosis 1+ (NORMAL); Platelet Estimate Adequate (Adequate); Poikilocytosis 1+ (NORMAL)
[2021-11-20 08:42] LABS: Target Cells 1+ (NORMAL)
== END 2021-11-20 06:37 | disposition home or self-care (01) ==
LOC: ANHLAB 06:40
PROVIDERS: PCP Internal Medicine; Visit Provider Internal Medicine Nephrology
DX: I12.9 Hypertensive chronic kidney disease with stage 1 through stage 4 chronic kidney disease, or unspecified chronic kidney disease (principal); N18.31 Chronic kidney disease, stage 3a
CPT/HCPCS: 36415; 80069; 82570; 84156; 85025

== ENCOUNTER 2022-01-15 07:33 | Outpatient (CLI) | payer MEDICARE, MEDICAID, SELFPAY ==
--- NOTE | ~2022-01-15 | MM_ITS ---
EXAMINATION: MM screening declan BI w andrés HISTORY: Screening mammogram TECHNIQUE: Craniocaudal and mediolateral oblique 3-D tomosynthesis images were obtained and synthetic 2-D images were generated. CAD analysis was submitted and interpreted. COMPARISON: 11/16/2020, 11/15/2019 bilateral screening mammogram examinations BREAST PARENCHYMAL COMPOSITION: There are scattered areas of fibroglandular density. FINDINGS: There is no evidence of suspicious mass, calcification, or architectural distortion to sugg est malignancy in either breast. There has been no suspicious interval change. IMPRESSION: 1. No mammographic evidence of malignancy. 2. Recommend routine screening mammography in one year. BI-RADS Category 1: Negative Reviewed, dictated and finalized at location A.
== END 2022-01-15 07:34 | disposition home or self-care (01) ==
PROVIDERS: PCP Internal Medicine
DX: Z12.31 Encounter for screening mammogram for malignant neoplasm of breast (principal)
CPT/HCPCS: 77063; 77067

== ENCOUNTER 2022-03-20 10:42 | Outpatient (CLI) | payer MEDICARE, MEDICAID, SELFPAY ==
--- NOTE | ~2022-03-20 | DEXA_ITS ---
Bone Density Report Name: MOHAMUD EDUARDO Age: 66 Sex: Female Ethnicity: White Date of : 1955 Indication: postmenopausal; screening for osteoporosis; asthma or emphysema; Referring Provider: MATT COLEMAN Study: Bone densitometry was performed. Exam Date: March 20, 2022 Accession number: [id number] Bone Density: Region BMD T-score Z-score Classification AP Spine(L1-L4) 0.926 -1.1 0.7 Osteopenia Femoral Neck (Left) 0.670 -1.6 -0.1 Osteopenia Total Hip (Left) 0.803 -1.1 0.1 Osteopenia Femoral Neck (Right) 0.666 -1.7 -0.1 Osteopenia Total Hip (Right) 0.813 -1.1 0.2 Osteopenia Total Hip Mean 0.808 -1.1 0.2 Osteopenia World Health Organization criteria for BMD impression classify patients as: Normal (T-score at or above -1.0), Osteopenia (T-score between -1.0 and -2.5), or Osteoporosis (T-score at or below -2.5). 10-year Fracture Risk(1): Major Osteoporotic Fracture 9.2% Hip Fracture 1.1% Reported Risk Factors: [place] (), Neck BMD=0.670, BMI=27.5 (1) FRAX(R) Version 3.08. Fracture probability calculated for an untreated patient. Fracture probability may be lower if the patient has received treatment. Clinical Information Provided by Patient: Has used the following medications: Vitamin D, Calcium Has the following medical conditions: Asthma or Emphysema Patient maximum height was 53 Drinks caffeinated beverages Onset of menses at age 16 Number of children 4 Impression: The patient has low bone mass, based on the Right Femoral Neck T-score. The patient has an estimated ten-year risk of hip fracture of 1.1% and an estimated ten-year risk of major fracture of 9.2%, based on the WHO FRAX algorithm. Discussion: BONE DENSITY IS LOW AT ONE OR MORE SKELETAL SITES. This patient's lowest T-score is low at one or more skeletal sites. It meets the World Health Organization's (WHO) criteria for ?low bone mass? (T-score between -1.0 and -2.5). The patient's 10-year risk of fracture as calculated by FRAX is less than the threshold where pharmacological therapy is recommended by the National Osteoporosis Foundation (NOF). However, all treatment decisions require clinical judgment and consideration of individual patient factors, including patient preferences, comorbidities, previous drug use, risk factors not captured in the FRAX model (e.g., frailty, falls, vitamin D deficiency, increased bone turnover, interval significant decline in bone density) and possible under or overestimation of fracture risk by FRAX. The patient should follow a healthful lifestyle (good nutrition with adequate calcium and vitamin D, and appropriate weight-bearing exercise). Follow-Up: Consider repeating this study in 2 to 3 years to reassess this patient's status, or sooner if there is some new clin
== END 2022-03-20 10:43 | disposition home or self-care (01) ==
LOC: ANHIMG 10:44
PROVIDERS: PCP Internal Medicine; Visit Provider Internal Medicine
DX: Z78.0 Asymptomatic menopausal state (principal); M85.88 Other specified disorders of bone density and structure, other site; M85.852 Other specified disorders of bone density and structure, left thigh; M85.851 Other specified disorders of bone density and structure, right thigh
CPT/HCPCS: 77080